=== PATIENT | female | born 1985 | race African-American/Black ===

== ENCOUNTER 2018-09-23 22:17 | Emergency (ER) | payer OTHER ==
[~2018-09-23] VITALS: Ht 175.3 cm; Wt 108.9 kg
[~2018-09-23 22:17] MED LIST: AZITHROMYCIN 2250 MG PO; MEDROLDOSEPACK PO; NAPROSYN500 M1 PO; TESSALON200 MG PO; TRAMADOL 50 MG50 MG PO; ZPAK PO
[2018-09-23] MEDS ORDERED: PRENATAL GUMMI1 EACH (22:29)
[2018-09-23 22:33] LABS: URINE BILIRUBIN NEGATIVE (Negative); URINE BLOOD NEGATIVE (Negative); URINE CLARITY CLEAR; URINE COLOR YELLOW; URINE GLUCOSE-RANDOM NEGATIVE (Negative); URINE KETONES NEGATIVE (Negative); URINE LEUKOCYTES NEGATIVE (Negative); URINE NITRITE NEGATIVE (Negative); URINE PROTEIN NEGATIVE (Negative); URINE SPECIFIC GRAVITY 1.015 (1.005-1.030); URINE UROBILINOGEN 0.2 E.U./dl (0.2-1.0)
[2018-09-23 22:48] LABS: ABSOLUTE BASOPHILS 0.1 thou/uL (0.0-0.2); ABSOLUTE EOSINOPHILS 0.3 thou/uL (0.0-0.7); ABSOLUTE LYMPHOCYTES 2.5 thou/uL (0.8-5.3); ABSOLUTE MONOCYTES 0.8 thou/uL (0.0-1.2); ABSOLUTE NEUTROPHILS 5.9 thou/uL (1.6-8.1); BASOPHILS 1.2 %; EOSINOPHILS 3.2 %; HEMATOCRIT 37.7 % (37.0-47.0); HEMOGLOBIN 12.6 gm/dL (12.0-15.0); LYMPHOCYTES 26.2 %; MCH 29.6 pg (26.0-34.0); MCHC 33.5 g/dL (28.0-37.0); MCV 88.5 fL (80.0-100.0); MONOCYTES 8.6 %; MPV 7.5 fl. (7.2-11.1); NUCLEATED RBCS 0 /100WBC; PLATELET COUNT* 295 thou/uL (150-400); POLYS 60.8 %; RBC 4.26 mil/uL (4.20-5.00); RDW-CV 13.5 % (10.5-14.5); WBC 9.6 thou/uL (4.0-11.0)
[2018-09-23 22:53] LABS: CALCIUM 8.9 mg/dL (8.5-10.1); CREATININE 0.8 mg/dL (0.6-1.3); POTASSIUM 3.8 mmol/L (3.5-5.1)
[2018-09-23 22:57] LABS: TOTAL BILIRUBIN 0.1 mg/dL (<0.1-1.0); TOTAL PROTEIN 6.8 g/dL (6.4-8.2)
[2018-09-24 00:51] VITALS: BP 152/67
== END 2018-09-24 00:51 | disposition home or self-care (01) ==
LOC: M.ERS 22:17
PROVIDERS: Physician Assistant
DX: O34.81 Maternal care for other abnormalities of pelvic organs, first trimester (principal); N83.202 Unspecified ovarian cyst, left side; Z3A.13 13 weeks gestation of pregnancy

== ENCOUNTER 2020-10-09 13:34 | Emergency (ER) | payer OTHER ==
[~2020-10-09] VITALS: Ht 175.3 cm; Wt 113.4 kg
[~2020-10-09 13:34] MED LIST changes: +PRENATAL GUMMI1 EACH
[2020-10-09] MEDS ORDERED: VISTARIL 25 MG25 M1 PO (14:24)
[2020-10-09 14:40] VITALS: BP 136/85
== END 2020-10-09 14:41 | disposition home or self-care (01) ==
LOC: M.ERS 13:34
DX: U07.1 COVID-19 (principal); F41.9 Anxiety disorder, unspecified; R20.0 Anesthesia of skin; R20.2 Paresthesia of skin

== ENCOUNTER 2021-09-08 07:20 | Emergency (ER) | payer OTHER ==
[~2021-09-08] VITALS: Ht 175.3 cm; Wt 113.4 kg
[~2021-09-08 07:20] MED LIST changes: +VISTARIL 25 MG25 M1 PO
[2021-09-08] MEDS ORDERED: DOXYCYCLINE 10100 MG PO (07:48)
[2021-09-08 08:13] VITALS: BP 128/90
== END 2021-09-08 08:13 | disposition home or self-care (01) ==
LOC: M.ERS 07:20
DX: U07.1 COVID-19 (principal); J40 Bronchitis, not specified as acute or chronic; Z98.890 Other specified postprocedural states; Z79.899 Other long term (current) drug therapy